=== PATIENT | female | born 1945 | race Caucasian/White ===

== ENCOUNTER 2018-07-04 09:07 | Day surgery (SDC) | payer MEDICARE, OTHER ==
--- NOTE | 2018-07-04 06:45 | History and Physical - [place] ---
CHIEF COMPLAINT/HISTORY OF CHIEF COMPLAINT: This patient presents with a history of an intractable lumbar radiculopathy. Due to the failure of therapy, a spinal cord stimulator trial was conducted on 06/14/18 with 75-85% pain control. Due to the failure of other therapies and the success of the trial, the patient presents today for implantation of a permanent system. PAST MEDICAL HISTORY: Sleep apnea and thrombophlebitis. PAST SURGICAL HISTORY: Gallbladder surgery, tubal ligation and appendectomy. MEDICATIONS ON ADMISSION: List to be provided. ALLERGIES: TETANUS. FAMILY/PSYCHOSOCIAL HISTORY: Social history - Caffeine. Family history - Diabetes, coronary artery disease, and hypertension. SYSTEMS REVIEW: The patient seems appropriate in no acute distress. The remainder of the systems review is positive for sleep disturbance, reflux disease, and degenerative arthritis. PHYSICAL EXAMINATION: Height is 5'6", no weight noted. Vital signs - Blood pressure 140/90. Current examination shows diffuse tenderness lumbar spine. Range of motion does seem to reduce pain throughout the low back and extending into the lower extremities. Motor and sensory field function shows no obvious motor or sensory deficits. Ambulation - No assistive device utilized. NEUROLOGIC: Cranial nerves are intact. IMPRESSION: LUMBAR RADICULOPATHY, ICD-10 CODE M54.16 AND M54.17. PLAN: The patient is here for implantation of permanent spinal cord stimulator after a successful trial and the failure of other therapies. The procedure will be considered outpatient although an overnight stay will be evaluated. JOB NUMBER: [id number] MTDD
[~2018-07-04 09:07] MED LIST: ACETAMINOPHEN 1,000 MG/100 ML BTL IV ONE; CEFAZOLIN 2 Gram 2 GM/50 ML BAG IVPB ONE; FAMOTIDINE 20MG TABLET PO ONE; MECLIZINE 25 MG TABLET PO ONE; METOCLOPRAMIDE 10 MG TABLET PO ONE
[2018-07-04] MEDS ORDERED: 0.9 % SODIUM CHLORIDE 10 ML VIAL IVP ONE (09:08)
[2018-07-04] MEDS ORDERED: ONDANSETRON HCL IV 4 MG/2 ML VIAL IVP ONE (09:08)
[2018-07-04] MEDS ORDERED: KETAMINE HCL 100MG/1ML VIAL INJ ONE (09:08)
[2018-07-04] MEDS ORDERED: LIDOCAINE 1% W/EPI 1:200,000 MPF 30ML SQ ONE (09:08)
[2018-07-04] MEDS ORDERED: PROPOFOL 10 MG/ML VIAL IV ONE (09:08)
[2018-07-04] MEDS ORDERED: CEFAZOLIN 1G VIAL IM ONE (09:08)
[2018-07-04] MEDS ORDERED: MIDAZOLAM HCL 2MG/2ML VIAL IV ONE (09:08)
[2018-07-04] MEDS ORDERED: BUPIVACAINE 0.5% W/EPI MPF 30 ML VIAL IVP ONE (09:08)
[2018-07-04] MEDS ORDERED: HYDROMORPHONE HCL 2 MG/ML VIAL IV ONE (09:08)
[2018-07-04] MEDS ORDERED: FENTANYL PF 100MCG/2ML VIAL IV ONE (09:08)
[2018-07-04 09:34] LABS: BLEEDING TIME 3.5 MINUTES (1.5-7.0)
[2018-07-04 10:01] LABS: PARTIAL THROMBOPLASTIN TIME 25.6 SECONDS (24.5-39.1); PROTHROMBIN TIME (PATIENT) 10.3 SECONDS (9.5-12.1)
--- NOTE | 2018-07-06 05:32 | Operative Note ---
DATE: 07/04/2018. PREOPERATIVE DIAGNOSIS: LEFT LUMBAR RADICULOPATHY, ICD-10 CODE M54.16 AND M54.17. POSTOPERATIVE DIAGNOSIS: LEFT LUMBAR RADICULOPATHY, ICD-10 CODE M54.16 AND M54.17. ANESTHESIA: Local sedation. ANESTHESIA PROVIDER: Giovanny Cole CRNA. PROCEDURES: 1. Fluoroscopically guided left epidural access at T12-L1. Placement of spinal cord stimulator lead 1, a [employer] 16 with 16 electrodes, positioned left of midline T7. 2. Fluoroscopically guided left epidural access at T11-12. Placement of spinal cord stimulator lead 2, a [employer] 16 with 16 electrodes, positioned left, lateral to lead 1 offset upper electrode T9. 3. Complex programming of lead 1 over 20 minutes followed by complex programming of lead 2 over 20 minutes. 4. Incision, subcutaneous dissection, and anchoring of leads 1 and 2 to the skin with a [employer] locking anchor and nonabsorbable suture. 5. Incision, subcutaneous dissection, and creation of subcutaneous pouch at the left posterosuperior gluteal margin for placement of generator identified as a [employer] programmable rechargeable WaveWriter generator. 6. Tunnelling between lead pouch and generator pouch with placement of the external portions of lead 1 and lead 2 into generator, interfaced to the generator. 7. Placement of leads into pouch. Placement of generator into the pouch. 8. Closure of incisions using Stratafix suture; #2-0 for the fascia and #3-0 for the skin. Dermabond closure. 9. Complex recovery room programming of the internal generator for home use, two stimulators, for 20 minutes. SURGEON: Dylan Cr D.O. INDICATIONS: This patient presents with a history of intractable lumbar radiculopathy. Due to the failure of therapies, a spinal cord stimulator trial was conducted with 75 to 90 percent pain control. Due to the failure of all therapies and the success of the trial, the patient presents today for implantation of a permanent system. DESCRIPTION OF PROCEDURE: Intravenous lines, vital sign monitoring, and intravenous sedation. Prepped and draped with sterile technique with the patient positioned prone. The epidural interspaces at 12-1 and 11-12 were marked and infiltrated from the left using curved access Epimed needles with loss of resistance the space was accessed. At 12-1, spinal cord stimulator lead 1, a [employer] 16 with 16 electrodes, was positioned left of midline at T7. With the access at 11-12, spinal cord stimulator lead 2, a [employer] 16 with 16 electrodes was advanced as far as it could be advanced left of lead 1, left of the midline. The upper electrode was at T9. Complex programming of lead 1 over 20 minutes was followed by complex programming of lead 2 over 20 minutes. This resulted in complete patterns of stimulation across the back and into the legs. The patient indicated we were in all of the areas of the pain. She was then given the options to implant, continue to implant, continue to program, or remove. She opted to implant. The questions were repeated with the same response. The skin below both needles was then infiltrated with local. An incision was made, and subcutaneous dissection was conducted to the supraspinous fascia. Each of the leads was then anchored to the supraspinous fascia with a [employer] locking anchor and nonabsorbable suture. At the left posterosuperior gluteal margin, the site picked by the patient for the generator, the skin was infiltrated. An incision was made and subcutaneous dissection was conducted to form a pouch of suitable size and depth for the generator, a [employer] programmable rechargeable generator. A tunneling tool was used to carry the leads into the generator pouch, and then each lead was interfaced to the generator. Antibiotic irrigation and Bovie for hemostasis. With the leads interfaced to the generator at the left posterior gluteal margin, the generator and leads were placed into the pouch. The electrodes were then placed into their own pouch. Both incisions were then closed using Stratafix suture; #2-0 for the fascia and #3-0 for the skin. Dermabond closure was then used to approximate the edges of both wounds. She was then transported to the recovery room stable with no side effects from the procedure or the sedation. When fully awake and alert, complex programming of the generator was performed over 20 minutes, re-establishing stimulation of pain control to the appropriate areas. She was instructed on use of the system and was provided with information on error messaging. She was then prepared for discharge. DISCHARGE INSTRUCTIONS: 1. The sites are to remain clean and dry. No showering or bathing in any way that would disrupt dressings. If this happens, contact the clinic. 2. Standard medications to be resumed including the antibiotic Levaquin 500 mg once a day for 14 days. 3. The office is to contact the patient in 12 to 24 hours to have her return to the office in seven to ten days to evaluate the sites. Until then, she is to keep her activities controlled and limit bend, lift, push, and pull. 4. All other instructions were provided including numbers to contact with problems. She was then discharged. JOB NUMBER: [id number] cc: Ronit Goodman
--- NOTE | 2018-07-06 15:13 | RADIOLOGY REPORT ---
EXAM: THORACIC SPINE, ONE VIEW HISTORY: STATUS POST SPINAL CANAL STIMULATOR IMPLANT. TECHNIQUE: AP portable supine view of the thoracic spine was obtained. Comparison: None. FINDINGS: Two interspinal stimulator leads are in place likely entering the spinal canal at the lower thoracic level. The tip of one of the leads is at the T7 level and the other at the T8-T9 level. There are mild degenerative changes scattered throughout the visualized spine. No lytic or blastic bone lesion. IMPRESSION: TWO INTERSPINAL STIMULATOR LEADS IN PLACE, DESCRIBED ABOVE. JOB NUMBER: [id number] [facility]
== END 2018-07-04 13:30 | disposition home or self-care (01) ==
LOC: SUR 09:07
PROVIDERS: ATTEND Pain Medicine Interventional Pain Medicine
DX: M54.16 Radiculopathy, lumbar region (principal); M54.17 Radiculopathy, lumbosacral region; E78.00 Pure hypercholesterolemia, unspecified; E11.9 Type 2 diabetes mellitus without complications; Z79.4 Long term (current) use of insulin; Z79.01 Long term (current) use of anticoagulants; R60.9 Edema, unspecified; K21.9 Gastro-esophageal reflux disease without esophagitis; Z86.718 Personal history of other venous thrombosis and embolism; G47.33 Obstructive sleep apnea (adult) (pediatric)
CPT/HCPCS: 63650; 63685; 01936; 95972; 85730; 85610; 36416; 82948; 85002; 72020; J2405; J3010; J1170; J0690; J3490; C1820; C1883